=== PATIENT | male | born 1990 | race Caucasian/White ===

== ENCOUNTER 2017-12-24 01:23 | Emergency (ER) | payer SELFPAY ==
[~2017-12-24] VITALS: Ht 182.9 cm; Wt 81.6 kg
[2017-12-24] MEDS ORDERED: PREDNISONE 20 MG TAB PO STA (01:32)
[2017-12-24] MEDS ORDERED: FAMOTIDINE 20 MG TAB PO STA (01:33)
[2017-12-24] MEDS ORDERED: FAMOTIDINE 20 MG TAB ONE (01:35)
[2017-12-24] MEDS ORDERED: PREDNISONE 20 MG TAB ONE (01:35)
[2017-12-24 02:39] VITALS: BP 122/87
== END 2017-12-24 02:39 | disposition home or self-care (01) ==
LOC: ER 01:23
DX: R21 Rash and other nonspecific skin eruption (principal); T37.0X4A Poisoning by sulfonamides, undetermined, initial encounter; F11.20 Opioid dependence, uncomplicated; F14.20 Cocaine dependence, uncomplicated
CPT/HCPCS: 99283